=== PATIENT | male | born 1995 | race Caucasian/White ===

== ENCOUNTER 2017-02-21 19:44 | Emergency (ER) | payer OTHER ==
[~2017-02-21] VITALS: Ht 165.1 cm; Wt 63.5 kg
[~2017-02-21 19:44] MED LIST: AMOXICILLIN500 MG PO; AMOXICILLIN875 MG PO; AMOXIL250 M1 PO; CLARITIN-D 12 H1 TAB PO; CLARITIN-D 24 H1 T24 PO; CLARITIN10 MG PO; CLEOCIN150 MG PO; CORDROL20 MG PO; CYCLOBENZAPRINE10 MG PO; CYCLOBENZAPRINE5 M3 PO; DELTASONE20 M1 PO; FIORICET 325 MG1 TAB PO; HYCODAN,HYDROME10 ML PO; HYDROCODONE BIT1 T11 PO; KEFLEX500 MG PO; MACROBID100 M1 PO; MEDROL DOSEPAK4 MG PO; MIRALAX POWDER255 GM PO; MOTRIN100 MG/5 M PO; MOTRIN400 MG PO; MOTRIN800 MG PO; Motrin,Rufen800 MG PO; NAPROSYN500 MG PO; NKHM; NORCO 325 MG-51 TAB PO; PARAFON FORTE500 MG PO; PROVENTIL0.09 MG/A1 INH; TESSALON PERLE100 M1 PO; VOLTAREN50 M1 PO; ZITHROMAX Z PA250 MG PO; ZOFRAN ODT4 MG SL; ZOFRAN4 MG PO; Zofran4 MG PO
[2017-02-21] MEDS ORDERED: ANAPROX DS550 MG PO (20:06)
[2017-02-21] MEDS ORDERED: CLINDAMYCIN HC300 MG PO (20:06)
== END 2017-02-21 22:12 | disposition home or self-care (01) ==
LOC: ED 19:44
DX: K04.7 Periapical abscess without sinus (principal)

== ENCOUNTER 2017-04-23 14:19 | Emergency (ER) | payer OTHER ==
[~2017-04-23] VITALS: Ht 165.1 cm; Wt 70.3 kg
[~2017-04-23 14:19] MED LIST changes: +ANAPROX DS550 MG PO; +CLINDAMYCIN HC300 MG PO
== END 2017-04-23 17:01 | disposition home or self-care (01) ==
LOC: ED 14:19
DX: M25.511 Pain in right shoulder (principal)

== ENCOUNTER 2017-12-01 08:12 | Emergency (ER) | payer OTHER ==
[~2017-12-01] VITALS: Ht 162.5 cm; Wt 59.0 kg
[2017-12-01] MEDS ORDERED: ZOFRAN ODT4 MG SL (09:44)
[2017-12-01] MEDS ORDERED: PROVENTIL HFA6.7 GM IH (09:44)
== END 2017-12-01 09:54 | disposition home or self-care (01) ==
LOC: ED 08:12
DX: J45.909 Unspecified asthma, uncomplicated (principal); F10.10 Alcohol abuse, uncomplicated; Z79.899 Other long term (current) drug therapy

== ENCOUNTER 2019-04-09 11:39 | Emergency (ER) | payer OTHER ==
[~2019-04-09] VITALS: Ht 162.5 cm; Wt 63.5 kg
[~2019-04-09 11:39] MED LIST changes: +PROVENTIL HFA6.7 GM IH
[2019-04-09] MEDS ORDERED: PREDNISONE20 M1 PO (12:21)
== END 2019-04-09 12:33 | disposition home or self-care (01) ==
LOC: ED 11:39
DX: L23.7 Allergic contact dermatitis due to plants, except food (principal)

== ENCOUNTER 2019-05-14 06:42 | Emergency (ER) | payer OTHER ==
[~2019-05-14] VITALS: Ht 162.5 cm; Wt 63.5 kg
[~2019-05-14 06:42] MED LIST changes: +PREDNISONE20 M1 PO
[2019-05-14] MEDS ORDERED: Peridex 473 ML473 ML PO (07:31)
== END 2019-05-14 07:38 | disposition home or self-care (01) ==
LOC: ED 06:42
DX: K13.79 Other lesions of oral mucosa (principal); J45.909 Unspecified asthma, uncomplicated; Z79.2 Long term (current) use of antibiotics; Z79.899 Other long term (current) drug therapy

== ENCOUNTER 2019-10-28 07:53 | Emergency (ER) | payer SELFPAY ==
[~2019-10-28] VITALS: Ht 162.5 cm; Wt 63.5 kg
[~2019-10-28 07:53] MED LIST changes: +Peridex 473 ML473 ML PO
[2019-10-28] MEDS ORDERED: Motrin,Rufen800 MG PO (09:31)
== END 2019-10-28 09:38 | disposition home or self-care (01) ==
LOC: ED 07:53
DX: R07.89 Other chest pain (principal)

== ENCOUNTER 2020-03-29 13:13 | Emergency (ER) | payer OTHER ==
[~2020-03-29] VITALS: Ht 162.5 cm; Wt 59.0 kg
[2020-03-29] MEDS ORDERED: SEPTDS PO (13:46)
== END 2020-03-29 13:58 | disposition home or self-care (01) ==
LOC: ED 13:13
DX: L03.012 Cellulitis of left finger (principal)

== ENCOUNTER 2020-04-19 18:08 | Emergency (ER) | payer OTHER ==
[~2020-04-19] VITALS: Ht 160 cm; Wt 60.3 kg
[~2020-04-19 18:08] MED LIST changes: +SEPTDS PO
== END 2020-04-19 19:56 | disposition home or self-care (01) ==
LOC: ED 18:08
DX: S90.32XA Contusion of left foot, initial encounter (principal); Z79.899 Other long term (current) drug therapy; X58.XXXA Exposure to other specified factors, initial encounter; Y93.89 Activity, other specified; Y92.89 Other specified places as the place of occurrence of the external cause; Y99.8 Other external cause status

== ENCOUNTER 2020-05-25 10:32 | Emergency (ER) | payer OTHER ==
[~2020-05-25] VITALS: Wt 63.5 kg
[2020-05-25] MEDS ORDERED: ZOFRAN4 MG PO (11:55)
== END 2020-05-25 12:01 | disposition home or self-care (01) ==
LOC: ED 10:32
DX: A08.4 Viral intestinal infection, unspecified (principal); J45.909 Unspecified asthma, uncomplicated

== ENCOUNTER 2020-06-06 07:43 | Emergency (ER) | payer OTHER ==
[~2020-06-06] VITALS: Wt 59.0 kg
== END 2020-06-06 11:59 | disposition home or self-care (01) ==
LOC: ED 07:43
DX: R06.02 Shortness of breath (principal)

== ENCOUNTER 2020-07-16 09:37 | Emergency (ER) | payer OTHER ==
[~2020-07-16] VITALS: Ht 162.5 cm; Wt 59.0 kg
[2020-07-16] MEDS ORDERED: CEPHALEXIN500 M1 PO (10:06)
== END 2020-07-16 10:22 | disposition home or self-care (01) ==
LOC: ED 09:37
DX: H66.42 Suppurative otitis media, unspecified, left ear (principal)

== ENCOUNTER 2020-08-22 07:09 | Emergency (ER) | payer OTHER ==
[~2020-08-22] VITALS: Ht 162.5 cm; Wt 59.0 kg
[~2020-08-22 07:09] MED LIST changes: +CEPHALEXIN500 M1 PO
== END 2020-08-22 12:06 | disposition home or self-care (01) ==
LOC: ED 07:09
DX: B34.9 Viral infection, unspecified (principal); Z20.828 Contact with and (suspected) exposure to other viral communicable diseases

== ENCOUNTER → 2020-09-06 | Outpatient (CLI) | payer OTHER | END | disposition home or self-care (01) | LOC: COVID19 15:02 | PROVIDERS: ATTEND Student in an Organized Health Care Education/Training Program | DX: Z20.828 Contact with and (suspected) exposure to other viral communicable diseases (principal) ==

== ENCOUNTER 2020-09-26 11:55 | Emergency (ER) | payer OTHER ==
[~2020-09-26] VITALS: Ht 162.5 cm; Wt 61.7 kg
[2020-09-26 12:55] LABS: BASO % 0.4 % (0.0-1.0); EOS # 0.1 10*3/uL (0.0-0.4); EOS % 1.2 % (1.0-4.0); HEMATOCRIT 46.8 % (42.0-52.0); LYMPH # 1.9 10*3/uL (1.3-4.4); LYMPH % 25.5 % (27.0-41.0); MEAN CELL VOLUME 82.8 fl (80.0-94.0); MEAN CORPUSCULAR HGB 28.8 pg (27.0-31.0); MEAN CORPUSCULAR HGB CONC 34.8 g/dl (33.0-37.0); MEAN PLATELET VOLUME 11.4 fl (9.6-12.3); MONO # 0.5 10*3/uL (0.1-1.0); MONO % 7.1 % (3.0-9.0); NEUT % 65.4 % (47.0-73.0); PLATELET COUNT AUTOMATED 218 10*3/uL (130-400); RED BLOOD COUNT 5.65 10*6/uL (4.50-5.90); RED CELL DISTRI WIDTH 12.6 % (0-14.5); WHITE BLOOD COUNT 7.6 10*3/uL (4.8-10.8)
[2020-09-26 13:00] LABS: BILIRUBIN Negative (Negative); BLOOD Negative (Negative); CLARITY Clear (Clear); COLOR Yellow (Yellow); GLUCOSE Negative (Negative); KETONE Trace (Negative); LEUKO ESTERASE Trace (Negative); NITRITE Negative (Negative); PH 5.5 (4.5-8.0); SPECIFIC GRAVITY 1.025 (1.001-1.030)
[2020-09-26 13:08] LABS: ALBUMIN 4.5 gm/dl (3.1-4.5); ALKALINE PHOSPHATASE 62 U/L (45-117); BUN 17 mg/dl (7-24); CHLORIDE 107 mmol/L (98-107); CREATININE 1.07 mg/dL (0.70-1.30); LIPASE 68 U/L (73-393); POTASSIUM 3.8 mmol/L (3.5-5.1); SGOT/AST 12 IU/L (3-35); SGPT/ALT 20 U/L (12-78); SODIUM 140 mmol/L (136-145); TOTAL PROTEIN 7.6 gm/dL (6.4-8.2)
[2020-09-26 13:22] LABS: BACTERIA TRACE; EPITHELIAL CELLS 0-2; MUCOUS 1+
[2020-09-26] MEDS ORDERED: ZOFRAN4 MG PO (14:49)
== END 2020-09-26 14:48 | disposition home or self-care (01) ==
LOC: ED 11:55
PROVIDERS: Physician Assistant
DX: K52.9 Noninfective gastroenteritis and colitis, unspecified (principal); R11.2 Nausea with vomiting, unspecified; Z79.2 Long term (current) use of antibiotics

== ENCOUNTER 2020-10-07 11:54 | Emergency (ER) | payer OTHER ==
[~2020-10-07] VITALS: Ht 162.5 cm; Wt 59.0 kg
[2020-10-07] MEDS ORDERED: TYLENOL325 M1 PO (12:41)
[2020-10-07] MEDS ORDERED: NAPROXEN250 MG PO (12:41)
== END 2020-10-07 12:47 | disposition home or self-care (01) ==
LOC: ED 11:54
DX: R07.89 Other chest pain (principal); M54.5 Low back pain; R07.81 Pleurodynia; J45.909 Unspecified asthma, uncomplicated; Z79.899 Other long term (current) drug therapy; Z79.2 Long term (current) use of antibiotics

== ENCOUNTER 2020-12-15 15:54 | Emergency (ER) | payer OTHER ==
[~2020-12-15] VITALS: Ht 162.5 cm; Wt 59.0 kg
[~2020-12-15 15:54] MED LIST changes: +NAPROXEN250 MG PO; +TYLENOL325 M1 PO
[2020-12-15 16:26] LABS: BASO % 0.2 % (0.0-1.0); EOS # 0.1 10*3/uL (0.0-0.4); EOS % 0.7 % (1.0-4.0); HEMATOCRIT 47.2 % (42.0-52.0); LYMPH # 0.6 10*3/uL (1.3-4.4); LYMPH % 4.5 % (27.0-41.0); MEAN CORPUSCULAR HGB CONC 36.2 g/dl (33.0-37.0); MEAN PLATELET VOLUME 10.9 fl (9.6-12.3); MONO # 0.6 10*3/uL (0.1-1.0); MONO % 4.4 % (3.0-9.0); NEUT # 11.2 10*3/uL (2.3-7.9); NEUT % 89.8 % (47.0-73.0); PLATELET COUNT AUTOMATED 188 10*3/uL (130-400); RED CELL DISTRI WIDTH 12.5 % (0-14.5); WHITE BLOOD COUNT 12.5 10*3/uL (4.8-10.8)
[2020-12-15 16:40] LABS: ALBUMIN 4.4 gm/dl (3.1-4.5); ALKALINE PHOSPHATASE 68 U/L (45-117); BUN 12 mg/dl (7-24); CHLORIDE 108 mmol/L (98-107); CREATININE 1.13 mg/dL (0.70-1.30); LIPASE 64 U/L (73-393); POTASSIUM 3.5 mmol/L (3.5-5.1); SGOT/AST 11 IU/L (3-35); SGPT/ALT 30 U/L (12-78); SODIUM 138 mmol/L (136-145); TOTAL PROTEIN 7.8 gm/dL (6.4-8.2)
[2020-12-15] MEDS ORDERED: ZOFRAN4 MG PO (18:14)
== END 2020-12-15 19:26 | disposition home or self-care (01) ==
LOC: ED 15:54
PROVIDERS: Emergency Medicine
DX: R11.2 Nausea with vomiting, unspecified (principal); Z79.899 Other long term (current) drug therapy

== ENCOUNTER → 2022-04-18 | Outpatient (CLI) | payer OTHER ==
[2022-04-18 13:06] LABS: MEAN CELL VOLUME 86.7 fl (80.0-94.0); MEAN CORPUSCULAR HGB 29.5 pg (27.0-31.0); MEAN PLATELET VOLUME 11.2 fl (9.6-12.3); RED BLOOD COUNT 5.19 10*6/uL (4.50-5.90); RED CELL DISTRI WIDTH 13.2 % (0-14.5); WHITE BLOOD COUNT 5.9 10*3/uL (4.8-10.8)
[2022-04-18 13:28] LABS: BUN 9 mg/dl (7-24); CHLORIDE 109 mmol/L (98-107); CHOLESTEROL 260 mg/dL (<200); CREATININE 0.96 mg/dL (0.70-1.30); POTASSIUM 4.1 mmol/L (3.5-5.1); SGOT/AST 19 IU/L (3-35); SGPT/ALT 82 U/L (12-78); SODIUM 141 mmol/L (136-145); TRIGLYCERIDES 105 mg/dl (<150)
[2022-04-18 13:33] LABS: ALKALINE PHOSPHATASE 66 U/L (45-117); FREE T4 1.02 ng/dl (0.76-1.46); LDL CHOLESTEROL 181 mg/dL (9-159); THYROID STIM HORMONE (HS) 0.868 uIU/ml (0.358-4.75); TOTAL PROTEIN 6.8 gm/dL (6.4-8.2)
[2022-04-18 14:18] LABS: VITAMIN D, 25-HYDROXY 31.3 ng/mL (30-100)
[2022-04-19 08:08] LABS: HBSAG Negative (Negative); HEP B CORE AB, IGM Negative (Negative); HEPATITIS C ANTIBODY 0.2 (0.0-0.9)
== END | disposition home or self-care (01) ==
LOC: LAB 12:23
PROVIDERS: ATTEND Family Medicine
DX: Z00.00 Encounter for general adult medical examination without abnormal findings (principal); Z72.51 High risk heterosexual behavior; E55.9 Vitamin D deficiency, unspecified; R53.83 Other fatigue; L30.8 Other specified dermatitis; R21 Rash and other nonspecific skin eruption

== ENCOUNTER 2022-05-20 17:30 | Emergency (ER) | payer OTHER | END 2022-05-20 22:00 | disposition left against medical advice (07) | LOC: ED 17:30 | DX: R20.0 Anesthesia of skin (principal); R55 Syncope and collapse; Z53.21 Procedure and treatment not carried out due to patient leaving prior to being seen by health care provider ==

== ENCOUNTER → 2022-05-22 | Outpatient (CLI) | payer OTHER ==
[2022-05-22 11:07] LABS: HEMATOCRIT 45.3 % (42.0-52.0); MEAN CELL VOLUME 84.2 fl (80.0-94.0); MEAN CORPUSCULAR HGB 29.6 pg (27.0-31.0); MEAN CORPUSCULAR HGB CONC 35.1 g/dl (33.0-37.0); MEAN PLATELET VOLUME 10.7 fl (9.6-12.3); RED BLOOD COUNT 5.38 10*6/uL (4.50-5.90); RED CELL DISTRI WIDTH 12.6 % (0-14.5); WHITE BLOOD COUNT 7.3 10*3/uL (4.8-10.8)
[2022-05-22 11:29] LABS: FREE T4 1.25 ng/dl (0.76-1.46)
[2022-05-22 11:34] LABS: THYROID STIM HORMONE (HS) 0.971 uIU/ml (0.358-4.75)
== END | disposition home or self-care (01) ==
LOC: LAB 10:43
PROVIDERS: ATTEND Family Medicine
DX: R74.01 Elevation of levels of liver transaminase levels (principal); R53.83 Other fatigue

== ENCOUNTER → 2022-08-10 | Outpatient (CLI) | payer OTHER ==
[2022-08-10 11:41] LABS: CHOLESTEROL 160 mg/dL (<200)
[2022-08-10 11:42] LABS: TRIGLYCERIDES 72 mg/dl (<150)
[2022-08-10 11:44] LABS: LDL CHOLESTEROL 85 mg/dL (9-159)
== END | disposition home or self-care (01) ==
LOC: LAB 10:34
PROVIDERS: ATTEND Nurse Practitioner Family
DX: Z79.899 Other long term (current) drug therapy (principal)

== ENCOUNTER → 2023-02-14 | Outpatient (CLI) | payer OTHER | END | disposition home or self-care (01) | LOC: CARD 01:28 | PROVIDERS: ATTEND Internal Medicine | DX: R00.1 Bradycardia, unspecified (principal); R00.0 Tachycardia, unspecified ==

== ENCOUNTER → 2023-04-25 | Outpatient (CLI) | payer OTHER ==
[~2023-04-25] MED LIST changes: +AVPAK LEVETIRA750 M1 PO; +HYDROXYZINE PAM25 M1 PO; +NAPROXEN500 MG PO; +OMEPRAZOLE40 MG PO
== END | disposition home or self-care (01) ==
LOC: LAB 10:59
PROVIDERS: ATTEND Internal Medicine
DX: R00.1 Bradycardia, unspecified (principal)

== ENCOUNTER → 2023-05-06 | Outpatient (CLI) | payer OTHER ==
[~2023-05-06] MED LIST changes: +SINGULAIR10 M1 PO
== END | disposition home or self-care (01) ==
LOC: CARD 01:02
PROVIDERS: ATTEND Internal Medicine Cardiovascular Disease
DX: R00.1 Bradycardia, unspecified (principal)

== ENCOUNTER → 2023-05-22 | Outpatient (CLI) | payer OTHER | END | disposition home or self-care (01) | LOC: CARD 10:25 | PROVIDERS: ATTEND Internal Medicine Cardiovascular Disease | DX: R06.09 Other forms of dyspnea (principal) ==

== ENCOUNTER 2023-11-30 17:31 | Emergency (ER) | payer OTHER ==
[~2023-11-30] VITALS: Ht 162.5 cm; Wt 59.0 kg
[2023-11-30] MEDS ORDERED: methylPREDNISolone sod succ 125 MG VIAL IM ONE (17:45)
[2023-11-30] MEDS ORDERED: Ketorolac Tromethamine 30 MG/ML VIAL IM ONE (17:45)
[2023-11-30] MEDS ORDERED: CYCLOBENZAPRINE5 M3 PO (18:15)
[2023-11-30] MEDS ORDERED: Ondansetron Hydrochloride 4 MG TAB PO ONE (18:25)
== END 2023-11-30 19:39 | disposition home or self-care (01) ==
LOC: ED 17:31
DX: S39.012A Strain of muscle, fascia and tendon of lower back, initial encounter (principal); F17.210 Nicotine dependence, cigarettes, uncomplicated; Z79.899 Other long term (current) drug therapy; X50.1XXA Overexertion from prolonged static or awkward postures, initial encounter; Y93.89 Activity, other specified; Y92.89 Other specified places as the place of occurrence of the external cause; Y99.8 Other external cause status

== ENCOUNTER 2023-12-10 08:36 | Emergency (ER) | payer OTHER ==
[~2023-12-10] VITALS: Ht 162.5 cm; Wt 61.2 kg
[2023-12-10] MEDS ORDERED: ACETAMINOPHEN 325 MG TAB PO ONE (09:00)
== END 2023-12-10 11:21 | disposition home or self-care (01) ==
LOC: ED 08:36
DX: B34.9 Viral infection, unspecified (principal); Z20.822 Contact with and (suspected) exposure to COVID-19; R11.2 Nausea with vomiting, unspecified; R19.7 Diarrhea, unspecified; Z98.890 Other specified postprocedural states

== ENCOUNTER 2023-12-20 20:21 | Inpatient (IN) | payer OTHER ==
[~2023-12-20] VITALS: Ht 162.6 cm; Wt 69.4 kg
[2023-12-20 20:25] VITALS: BP 112/62
[2023-12-20] MEDS ORDERED: SODIUM CHLORIDE 0.9% 1,000 ML IV ONE ×2 (20:35→21:40)
[2023-12-20] MEDS ORDERED: IOHEXOL 300 MG/ML 100 ML VIAL IV ONE (20:40)
[2023-12-20 20:48] LABS: BASO % 0.2 % (0.0-1.0); EOS # 0.2 10*3/uL (0.0-0.4); EOS % 1.2 % (1.0-4.0); HEMATOCRIT 44.4 % (42.0-52.0); LYMPH % 14.3 % (27.0-41.0); MEAN CELL VOLUME 84.6 fl (80.0-94.0); MEAN CORPUSCULAR HGB 28.4 pg (27.0-31.0); MEAN CORPUSCULAR HGB CONC 33.6 g/dl (33.0-37.0); MEAN PLATELET VOLUME 10.8 fl (9.6-12.3); MONO # 0.9 10*3/uL (0.1-1.0); MONO % 6.5 % (3.0-9.0); NEUT # 10.6 10*3/uL (2.3-7.9); NEUT % 77.4 % (47.0-73.0); PLATELET COUNT AUTOMATED 262 10*3/uL (130-400); RED BLOOD COUNT 5.25 10*6/uL (4.50-5.90); RED CELL DISTRI WIDTH 13.2 % (0-14.5); WHITE BLOOD COUNT 13.6 10*3/uL (4.8-10.8)
[2023-12-20 21:01] LABS: ACT PARTIAL THROMBO TIME 25.1 SECONDS (20.0-32.1)
[2023-12-20 21:05] LABS: ALKALINE PHOSPHATASE 52 U/L (46-116); CHLORIDE 106 mmol/L (98-107); LIPASE 36 U/L (12-53); POTASSIUM 3.7 mmol/L (3.4-5.1); SGPT/ALT 28 U/L (5-49); TOTAL PROTEIN 6.4 gm/dL (6.0-8.0)
[2023-12-20 21:06] LABS: BUN < 5 mg/dl (9-23)
[2023-12-20 21:09] LABS: BILIRUBIN Negative (Negative); BLOOD Negative (Negative); CLARITY Clear (Clear); COLOR Yellow (Yellow); GLUCOSE Negative (Negative); KETONE Negative (Negative); LEUKO ESTERASE Negative (Negative); NITRITE Negative (Negative); SPECIFIC GRAVITY 1.015 (1.001-1.030); UROBILINOGEN 0.2 E.U./dl (0.0-1.0)
[2023-12-20 21:15] LABS: EPITHELIAL CELLS 0-2; RBC 0-2 rbc/hpf (0-2)
[2023-12-20] MEDS ORDERED: Piperacillin Sodium/Tazobact 50 ML IV ONE (21:40)
[2023-12-20 23:00] VITALS: BP 106/67
[2023-12-20] MEDS ORDERED: ONDANSETRON HYDR4 MG PO (23:24)
[2023-12-20] MEDS ORDERED: HYDROmorphONE Hydrochloride 0.5 MG/0.5 ML SYRINGE IV PRN (23:55)
[2023-12-21] VITALS (10 sets, daily range): BP systolic 96–118; BP diastolic 51–73
[2023-12-21] MEDS ORDERED: KEPPRA750 MG PO (00:36)
[2023-12-21] MEDS ORDERED: SODIUM CHLORIDE 0.9% 1,000 ML IV SCH (02:25)
[2023-12-21 05:39] LABS: ALKALINE PHOSPHATASE 49 U/L (46-116); CHLORIDE 107 mmol/L (98-107); POTASSIUM 4.1 mmol/L (3.4-5.1); SGPT/ALT 23 U/L (5-49); TOTAL PROTEIN 5.8 gm/dL (6.0-8.0)
[2023-12-21 05:42] LABS: BUN < 5 mg/dl (9-23)
[2023-12-21 06:15] LABS: BASO % 0.3 % (0.0-1.0); EOS # 0.2 10*3/uL (0.0-0.4); EOS % 1.8 % (1.0-4.0); HEMATOCRIT 42.1 % (42.0-52.0); LYMPH # 2.1 10*3/uL (1.3-4.4); LYMPH % 24.1 % (27.0-41.0); MEAN CELL VOLUME 85.7 fl (80.0-94.0); MEAN CORPUSCULAR HGB 28.7 pg (27.0-31.0); MEAN CORPUSCULAR HGB CONC 33.5 g/dl (33.0-37.0); MEAN PLATELET VOLUME 11.4 fl (9.6-12.3); MONO # 0.7 10*3/uL (0.1-1.0); NEUT # 5.7 10*3/uL (2.3-7.9); NEUT % 65.3 % (47.0-73.0); PLATELET COUNT AUTOMATED 219 10*3/uL (130-400); RED BLOOD COUNT 4.91 10*6/uL (4.50-5.90); RED CELL DISTRI WIDTH 13.3 % (0-14.5); WHITE BLOOD COUNT 8.7 10*3/uL (4.8-10.8)
[2023-12-21] MEDS ORDERED: ceFAZolin sodium/sodium chlor 0 ML IV ONE (08:32)
[2023-12-21] MEDS ORDERED: Piperacillin Sodium/Tazobact 50 ML IV ONE (09:05)
[2023-12-21] MEDS ORDERED: EPINEPHrine/Lidocaine Hydroc 20 ML VIAL ONE (09:11)
[2023-12-21] MEDS ORDERED: LEVETIRACETAM 750 MG in SODIUM CHLORIDE 0.9% 100 ML IV SCH (10:00)
[2023-12-21] MEDS ORDERED: IBUPROFEN 800 MG TAB PO PRN (16:15)
[2023-12-21] MEDS ORDERED: Neostigmine Methylsulfate 3 MG/3 ML SYRINGE IV ONE (18:47)
[2023-12-21] MEDS ORDERED: PROPOFOL 200 MG/20 ML VIAL IV ONE (18:47)
[2023-12-21] MEDS ORDERED: Ondansetron Hydrochloride 4 MG/2 ML VIAL IV ONE (18:47)
[2023-12-21] MEDS ORDERED: GLYCOPYRROLATE 0.4 MG/2 ML VIAL IV ONE (18:47)
[2023-12-21] MEDS ORDERED: Dexamethasone Sodium Phospha 20 MG/5 ML VIAL IV ONE (18:47)
[2023-12-21] MEDS ORDERED: ROCURONIUM BROMIDE 50 MG/5 ML SYRINGE IV ONE (18:47)
[2023-12-21] MEDS ORDERED: SEVOFLURANE 250 ML BOT INH ONE (18:47)
[2023-12-21] MEDS ORDERED: Lidocaine Hydrochloride 2% 10 ML AMP IM ONE (18:47)
[2023-12-21] MEDS ORDERED: Motrin,Rufen800 MG PO (18:55)
== END 2023-12-21 19:17 | disposition home or self-care (01) | DRG 234 ==
LOC: ED 20:21 → EDHOLD 21:47 → 4E 22:18
PROVIDERS: Internal Medicine; ADMIT Internal Medicine; ATTEND Internal Medicine
PROC: 0DTJ4ZZ Resection of Appendix, Percutaneous Endoscopic Approach (ICD-10-PCS; principal; 2023-12-21)
DX: K35.80 Unspecified acute appendicitis (principal); F43.20 Adjustment disorder, unspecified; F43.21 Adjustment disorder with depressed mood; D72.829 Elevated white blood cell count, unspecified; F12.90 Cannabis use, unspecified, uncomplicated; Z88.8 Allergy status to other drugs, medicaments and biological substances; Z91.09 Other allergy status, other than to drugs and biological substances; Z79.899 Other long term (current) drug therapy; Z79.01 Long term (current) use of anticoagulants; Z79.2 Long term (current) use of antibiotics; Z80.8 Family history of malignant neoplasm of other organs or systems; Z82.5 Family history of asthma and other chronic lower respiratory diseases; Z83.3 Family history of diabetes mellitus

== ENCOUNTER 2024-01-02 19:22 | Emergency (ER) | payer OTHER ==
[~2024-01-02] VITALS: Ht 162.5 cm; Wt 63.5 kg
[~2024-01-02 19:22] MED LIST changes: +KEPPRA750 MG PO; +ONDANSETRON HYDR4 MG PO
[2024-01-02 20:04] LABS: BASO % 0.5 % (0.0-1.0); EOS # 0.1 10*3/uL (0.0-0.4); EOS % 1.7 % (1.0-4.0); HEMATOCRIT 43.4 % (42.0-52.0); LYMPH # 1.8 10*3/uL (1.3-4.4); LYMPH % 21.7 % (27.0-41.0); MEAN CELL VOLUME 84.6 fl (80.0-94.0); MEAN CORPUSCULAR HGB 28.8 pg (27.0-31.0); MEAN CORPUSCULAR HGB CONC 34.1 g/dl (33.0-37.0); MEAN PLATELET VOLUME 10.7 fl (9.6-12.3); MONO # 0.5 10*3/uL (0.1-1.0); NEUT # 5.7 10*3/uL (2.3-7.9); NEUT % 69.4 % (47.0-73.0); PLATELET COUNT AUTOMATED 229 10*3/uL (130-400); RED BLOOD COUNT 5.13 10*6/uL (4.50-5.90); RED CELL DISTRI WIDTH 12.8 % (0-14.5); WHITE BLOOD COUNT 8.2 10*3/uL (4.8-10.8)
[2024-01-02 20:20] LABS: ALKALINE PHOSPHATASE 57 U/L (46-116); BUN 5 mg/dl (9-23); CHLORIDE 105 mmol/L (98-107); LIPASE 39 U/L (12-53); POTASSIUM 3.6 mmol/L (3.4-5.1); SGPT/ALT 37 U/L (5-49); TOTAL PROTEIN 6.5 gm/dL (6.0-8.0)
[2024-01-02] MEDS ORDERED: Ondansetron Hydrochloride 4 MG TAB SL ONE (21:15)
[2024-01-02] MEDS ORDERED: ONDANSETRON4 MG SL (22:11)
[2024-01-02] MEDS ORDERED: OMEPRAZOLE40 MG PO (22:11)
== END 2024-01-02 22:17 | disposition home or self-care (01) ==
LOC: ED 19:22
PROVIDERS: Internal Medicine
DX: K52.9 Noninfective gastroenteritis and colitis, unspecified (principal); K21.9 Gastro-esophageal reflux disease without esophagitis; Z88.8 Allergy status to other drugs, medicaments and biological substances; Z90.49 Acquired absence of other specified parts of digestive tract; Z98.890 Other specified postprocedural states; F12.90 Cannabis use, unspecified, uncomplicated

== ENCOUNTER → 2024-01-08 | Outpatient (CLI) | payer OTHER ==
[~2024-01-08] MED LIST changes: +ONDANSETRON4 MG SL
== END | disposition home or self-care (01) ==
LOC: US 01:57
PROVIDERS: ATTEND Internal Medicine
DX: R10.13 Epigastric pain (principal)

== ENCOUNTER 2024-04-16 20:43 | Emergency (ER) | payer OTHER ==
[~2024-04-16] VITALS: Ht 162.5 cm; Wt 63.5 kg
[2024-04-16] MEDS ORDERED: VALTREX1000 MG PO (20:50)
[2024-04-16 21:42] LABS: BASO % 0.4 % (0.0-1.0); EOS # 0.1 10*3/uL (0.0-0.4); EOS % 0.8 % (1.0-4.0); HEMATOCRIT 42.9 % (42.0-52.0); LYMPH # 1.8 10*3/uL (1.3-4.4); LYMPH % 21.8 % (27.0-41.0); MEAN CELL VOLUME 84.8 fl (80.0-94.0); MEAN CORPUSCULAR HGB 29.2 pg (27.0-31.0); MEAN CORPUSCULAR HGB CONC 34.5 g/dl (33.0-37.0); MEAN PLATELET VOLUME 11.2 fl (9.6-12.3); MONO # 0.4 10*3/uL (0.1-1.0); MONO % 5.3 % (3.0-9.0); NEUT % 71.3 % (47.0-73.0); PLATELET COUNT AUTOMATED 202 10*3/uL (130-400); RED BLOOD COUNT 5.06 10*6/uL (4.50-5.90); RED CELL DISTRI WIDTH 13.3 % (0-14.5); WHITE BLOOD COUNT 8.4 10*3/uL (4.8-10.8)
[2024-04-16] MEDS ORDERED: SODIUM CHLORIDE 0.9% 1,000 ML IV ONE ×2 (22:10→23:55)
[2024-04-16 22:30] LABS: BILIRUBIN Negative (Negative); BLOOD Negative (Negative); CLARITY Clear (Clear); COLOR Yellow (Yellow); GLUCOSE Negative (Negative); KETONE Trace (Negative); LEUKO ESTERASE Negative (Negative); NITRITE Negative (Negative); SPECIFIC GRAVITY 1.015 (1.001-1.030)
[2024-04-16 22:36] LABS: MUCOUS TRACE; RBC 0-2 rbc/hpf (0-2); WBC 0-2 wbc/hpf (0-5)
[2024-04-16] MEDS ORDERED: LEVETIRACETAM IN NACL (ISO-OS) 100 ML IV ONE (22:45)
== END 2024-04-17 00:16 | disposition home or self-care (01) ==
LOC: ED 20:43
PROVIDERS: Emergency Medicine
DX: R56.9 Unspecified convulsions (principal); R51.9 Headache, unspecified; E86.0 Dehydration; F12.90 Cannabis use, unspecified, uncomplicated; Z87.891 Personal history of nicotine dependence; Z88.8 Allergy status to other drugs, medicaments and biological substances; Z98.890 Other specified postprocedural states; Z90.49 Acquired absence of other specified parts of digestive tract

== ENCOUNTER → 2024-04-27 | Outpatient (CLI) | payer OTHER ==
[~2024-04-27] MED LIST changes: +VALTREX1000 MG PO
[2024-04-27 14:38] LABS: BUN 11 mg/dl (9-23); CHLORIDE 105 mmol/L (98-107); POTASSIUM 3.9 mmol/L (3.4-5.1)
== END | disposition home or self-care (01) ==
LOC: LAB 13:48
PROVIDERS: ATTEND Internal Medicine
DX: G40.109 Localization-related (focal) (partial) symptomatic epilepsy and epileptic syndromes with simple partial seizures, not intractable, without status epilepticus (principal); R79.89 Other specified abnormal findings of blood chemistry

== ENCOUNTER 2024-07-10 09:09 | Emergency (ER) | payer OTHER ==
[~2024-07-10] VITALS: Ht 162.5 cm; Wt 63.5 kg
[2024-07-10] MEDS ORDERED: Doxycycline Hyclate 100 MG CAP PO ONE (09:50)
[2024-07-10] MEDS ORDERED: VIBRAMYCIN100 MG PO (09:55)
== END 2024-07-10 10:06 | disposition home or self-care (01) ==
LOC: ED 09:09
DX: A77.0 Spotted fever due to Rickettsia rickettsii (principal); F12.90 Cannabis use, unspecified, uncomplicated; Z88.8 Allergy status to other drugs, medicaments and biological substances; Z98.890 Other specified postprocedural states

== ENCOUNTER → 2024-10-30 | Outpatient (CLI) | payer OTHER ==
[~2024-10-30] MED LIST changes: +VIBRAMYCIN100 MG PO
== END | disposition home or self-care (01) ==
LOC: RAD 10:55
PROVIDERS: ATTEND Internal Medicine
DX: R07.89 Other chest pain (principal)

== ENCOUNTER → 2024-12-14 | Outpatient (CLI) | payer OTHER | END | disposition home or self-care (01) | LOC: RAD 09:59 | PROVIDERS: ATTEND Chiropractor | DX: M25.78 Osteophyte, vertebrae (principal); M54.2 Cervicalgia; M54.50 Low back pain, unspecified ==

== ENCOUNTER → 2025-07-09 | Outpatient (CLI) | payer OTHER | END | disposition home or self-care (01) | LOC: RAD 15:14 | PROVIDERS: ATTEND Internal Medicine | DX: R07.89 Other chest pain (principal) ==